=== PATIENT | female | born 1975 | race African-American/Black ===

== ENCOUNTER 2024-08-26 11:04 | Emergency (ER) | payer OTHER ==
[2024-08-26 11:53] LABS: #Basophils 0.03 10x3/uL (0.0-0.2); #Eosinophils 0.03 10x3/uL (0.0-0.5); #Monocytes 0.26 10x3/uL (0.0-1.1); #Neutrophils 1.56 10x3/uL (1.5-8.4); %Basophils 0.8 % (0.0-2.0); %Eosinophils 0.8 % (0.0-6.0); %Lymphocytes 51.3 % (18.0-47.0); %Monocytes 6.7 % (0.0-10.0); %Neutrophils 40.1 % (40.0-75.0); Hematocrit 35.9 % (34.9-44.5); Hemoglobin 11.3 g/dL (12.0-15.5); Mean Corpuscular Hemoglobin 22.9 pg (27.0-33.0); Mean Corpuscular Volume 72.8 fL (81.6-98.3); Platelet Count 226 10x3/uL (150-450); Red Blood Cell (RBC) Count 4.93 10x6/uL (3.90-5.03); White Blood Cell (WBC) Count 3.88 10x3/uL (3.5-10.5)
[2024-08-26 12:07] LABS: ALT (SGPT) 11 U/L (Less than 34); AST (SGOT) 21 U/L (11-34); Albumin 3.8 g/dL (3.1-4.5); Alkaline Phosphatase 61 U/L (40-110); Anion Gap 14 mmol/L (10-20); BUN (Urea Nitrogen) 10 mg/dL (7.0-18.7); Bilirubin, Total 0.3 mg/dL (0.3-1.2); Calc. Creatinine Clearance 0 mL/min (70-130); Calcium 9.1 mg/dL (7.8-10.44); Carbon Dioxide 23 mmol/L (22-29); Chloride 105 mmol/L (98-107); Globulin 3.6 g/dL (2.4-3.5); Glucose 95 mg/dL (70-105); Potassium 4.4 mmol/L (3.5-5.1); Sodium 138 mmol/L (136-145)
[2024-08-26 12:12] LABS: Troponin I Less than 0.010 ng/mL (< 0.028)
[2024-08-26] MEDS ORDERED: Aspirin Chewable 81 MG TAB ONE (13:21)
== END 2024-08-26 14:25 | disposition home or self-care (01) ==
LOC: CSHERS 11:04
DX: R07.9 Chest pain, unspecified (principal)
CPT/HCPCS: 71045; 80053; 84443; 84484; 85025; 93005